=== PATIENT | male | born 1970 | race Caucasian/White ===

== ENCOUNTER 2016-03-11 10:11 | Emergency (ER) | payer OTHER ==
[2016-03-11] MEDS ORDERED: KETOROLAC 30 MG/ML VIAL ONE (11:47)
[2016-03-11] MEDS ORDERED: DILAUDID 1 MG/ML AMP ONE (14:13)
[2016-03-11] MEDS ORDERED: ONDANSETRON 4 MG VIAL ONE (14:17)
== END 2016-03-11 15:11 | disposition home or self-care (01) ==
LOC: ER 10:11
DX: R07.89 Other chest pain (principal)
CPT/HCPCS: 36415; 71010; 80053; 82550; 83735; 84484; 85025; 85610; 85730; 93005; 96374; 96375